=== PATIENT | male | born 1965 | race Caucasian/White ===

== ENCOUNTER 2022-10-26 19:29 | Emergency (ER) | payer MEDICAID ==
[~2022-10-26] VITALS: Ht 172.7 cm; Wt 90.9 kg
[2022-10-26] MEDS ORDERED: AMOX875T4 PO (22:14)
[2022-10-26] MEDS ORDERED: CYCL-837 PO (22:14)
[2022-10-26] MEDS ORDERED: IBUP-1456 PO (22:14)
[2022-10-26 23:30] VITALS: BP 143/89
== END 2022-10-26 22:51 | disposition home or self-care (01) ==
LOC: ER 19:29
DX: S01.81XA Laceration without foreign body of other part of head, initial encounter (principal); S16.1XXA Strain of muscle, fascia and tendon at neck level, initial encounter; V43.52XA Car driver injured in collision with other type car in traffic accident, initial encounter; Y93.89 Activity, other specified; Y92.89 Other specified places as the place of occurrence of the external cause; Y99.8 Other external cause status
CPT/HCPCS: 70450; 72125